=== PATIENT | male | born 1965 | race Caucasian/White ===

== ENCOUNTER 2020-05-23 19:56 | Inpatient (IN) | payer BC ==
[~2020-05-23] VITALS: Ht 175.3 cm; Wt 91.2 kg
--- NOTE | 2020-05-23 20:10 | NUR ---
2009 ADMITTED FROM [facility] 54 YEAR OLD GENTLEMAN WITH DX PLEURAL EFFUSIONS. AAOX4, AMBULATORY WITHOUT ASSIST. NOTED WITH SOB ON EXERTION BUT PATIENT DENIED DIFFICULTY BREATHING WHEN ASKED. VITAL SIGNS TAKEN AND RECORDED. O2 SATURATION 90% ON ROOM AIR, PLACED PATIENT ON 2LPM AND IMMEDIATELY O2 SAT WENT UP TO 95%. ADMISSION CARE RENDERED. HOB ELEVATED FOR MAXIMUM OXYGENATION. CALL LIGHT PLACED WITHIN REACH AND INSTRUCTED TO CALL FOR ASSISTANCE.
--- NOTE | 2020-05-23 20:25 | NUR ---
[address] RAYO FOR ADMISSION ORDERS, AWAITING CALL BACK.
--- NOTE | 2020-05-23 21:10 | NUR ---
2109 DR RAYO CALLED BACK AND MADE AWARE OF NEW ADMISSION.
[2020-05-23 22:00] VITALS: BP 151/96
[2020-05-23] MEDS ORDERED: MAGNESIUM HYDROXIDE 30 ML UDC PO PRN (23:00)
[2020-05-23] MEDS ORDERED: ONDANSETRON HCL/PF 4 MG/2 ML VIAL IVP PRN (23:00)
[2020-05-23] MEDS ORDERED: Z GUARD REMEDY 2 OZ OINT TP PRN (23:00)
[2020-05-23] MEDS ORDERED: MAG HYDROX/AL HYDROX/SIMETH 30 ML UDC PO PRN (23:00)
[2020-05-23] MEDS ORDERED: HYDROCODONE/APAP 5/325MG TABLET PO PRN (23:00)
--- NOTE | 2020-05-23 23:40 | NUR ---
RT NOTE PT PLACED ON CPAP 5 @ 28%. MASK SECURED WITH MEPILEX IN PLACE. ALARMS ON AND AUDIBLE. NO DISTRESS NOTED AT THIS TIME. PT STATES HE IS COMFORTABLE WITH CURRENT SETTINGS. RAKESH BORREGO NOTIFIED AND IS AWARE. WILL CONTINUE TO MONITOR CLOSELY. Addendum: 05/23/20 at 2357 by NAZARIO CROOK RT Amended: Links added.
[2020-05-24] VITALS: BP 149/82
--- NOTE | 2020-05-24 00:10 | NUR ---
RT NOTE PT REQUESTED TO REMOVE CPAP. NO DISTRESS NOTED. WILL PLACE ON CPAP AT A LATER TIME.
[2020-05-24] MEDS: ACETAMINOPHEN 325 MG TABLET PO PRN ×2 (00:12→07:32)
[2020-05-24] MEDS ORDERED: FUROSEMIDE 40 MG/4 ML VIAL IV ONE (00:30)
--- NOTE | 2020-05-24 03:18 | NUR ---
RT NOTE PT REFUSING TO GO BACK ON BIPAP MACHINE. NO DISTRESS NOTED. RN JEFFREY AWARE.
[2020-05-24 04:00] VITALS: BP 119/75
--- NOTE | 2020-05-24 04:45 | NUR ---
RN notes REceived from Berman a 54 year old male via ambulance on a gurney with complaint of shortness of breath especially upon exertionwith vital signs of BP 151/96, HR 113 and temp of 97.7. No complaint of pain or discomfort. Administered O2 via NC at 2lpm tolerating well. Patient at first wants to have BIPAP during sleep but later on refused to wear the mask. For thoracentesis in AM. No significant change of condition overnight. Needs attended. Kept clean and dry. Will endorse to next shift for continuity of care.
--- NOTE | 2020-05-24 07:10 | NUR ---
RN OPENING NOTES RECEIVED PT AWAKE, A/O X4. AMBULATORY. SKIN IS INTACT. ON ROOM AIR SATURATING @ 97%. NO SOB OR ANY RESPIRATORY DISTRESS NOTED. WITH LEFT AC #20 INTACT, PATENT AND FLUSHED. NO PAIN REPORTED AT THIS TIME. SAFETY MEASURES OBSERVED. CALL LIGHT WITHIN REACH. BED LOCKED AND AT LOWEST POSITION. WILL CONTINUE TO MONITOR.
[2020-05-24 07:30] LABS: BASOPHILS % (AUTO) 0.4 % (0.0-2.0); EOSINOPHILS % (AUTO) 0.9 % (0.0-6.0); HEMATOCRIT 44 % (39-51); HEMOGLOBIN 14.6 g/dL (13.5-17.5); LYMPHOCYTES % (AUTO) 11.2 % (20.0-44.0); MEAN CORPUSCULAR HGB CONC 34 g/dl (31.0-36.0); MEAN CORPUSCULAR VOLUME 91 fL (80-96); NEUTROPHILS # (AUTO) 6.9 /CMM (1.8-8.9); NEUTROPHILS % (AUTO) 76.5 % (43.0-81.0); PLATELET COUNT (AUTO) 216 /CMM (150-450); RED BLOOD CELL COUNT(AUTO) 4.77 MIL/uL (4.5-6.0); WHITE BLOOD COUNT (AUTO) 9.1 K/uL (4.3-11.0)
[2020-05-24 07:53] LABS: MAGNESIUM 2.2 mg/dL (1.8-2.4); PHOSPHORUS 4.2 mg/dL (2.5-4.9); POTASSIUM 4.1 mmol/L (3.5-5.1)
[2020-05-24 08:00] VITALS: BP 151/88
[2020-05-24] MEDS ORDERED: BENA20TA9 PO (09:00)
[2020-05-24] MEDS ORDERED: ATOR40TA PO (09:00)
[2020-05-24] MEDS ORDERED: METF-440 PO (09:00)
[2020-05-24] MEDS ORDERED: GLIP5TAB13 PO (09:00)
--- NOTE | 2020-05-24 11:03 | NUR ---
THORACENTESIS PENDING, AWAITING RN ELLA TO ORDER INR FOR PATIENT
[2020-05-24 12:00] VITALS: BP 146/87
--- NOTE | 2020-05-24 15:00 | NUR ---
RN NOTES US GUIDED THORACENTESIS DONE. 1660ML DRAINED ON RIGHT LUNG. FLUIDS SENT TO LAB FOR CULTURE AND BODY FLUIDS ANALYSIS. CXR DONE POST THORACENTESIS
[2020-05-24 16:00] VITALS: BP 137/93
[2020-05-24] MEDS: FUROSEMIDE 40 MG/4 ML VIAL IV SCH ×2 (16:50→18:56)
--- NOTE | 2020-05-24 18:53 | NUR ---
RN CLOSING NOTES PT RESTING IN BED, A/O X4. AMBULATORY. SKIN IS INTACT. PT ON ROOM AIR, ON CONTINUOUS PULSE OX @ 98% . NO SOB OR ANY RESPIRATORY DISTRESS NOTED. WITH LEFT AC #20 INTACT, PATENT AND FLUSHED. NO PAIN REPORTED AT THIS TIME. SAFETY MEASURES OBSERVED. CALL LIGHT WITHIN REACH. BED LOCKED AND AT LOWEST POSITION. WILL ENDORSE TO PICK UP OPERATOR FOR DESTINY.
[2020-05-24 20:00] VITALS: BP 137/82
[2020-05-25] VITALS: BP 106/66
--- NOTE | 2020-05-25 03:31 | NUR ---
RN notes In bed, comfortably resting with no distress noted. Breathing even and unlabored. Room air well tolerated. Kept clean and dry. S/p thoracentesis. Kept clean and dry. Will endorse to next shift for continuity of care.
[2020-05-25 04:00] VITALS: BP 122/85
[2020-05-25 07:03] LABS: BASOPHILS % (AUTO) 0.5 % (0.0-2.0); EOSINOPHILS % (AUTO) 1.5 % (0.0-6.0); HEMATOCRIT 47 % (39-51); HEMOGLOBIN 15.8 g/dL (13.5-17.5); LYMPHOCYTES # (AUTO) 1.1 /CMM (0.8-4.8); LYMPHOCYTES % (AUTO) 11.4 % (20.0-44.0); MEAN CORPUSCULAR HGB CONC 34 g/dl (31.0-36.0); MEAN CORPUSCULAR VOLUME 91 fL (80-96); MONOCYTES # (AUTO) 1.3 /CMM (0.1-1.30); MONOCYTES % (AUTO) 13.9 % (2.0-12.0); NEUTROPHILS # (AUTO) 6.8 /CMM (1.8-8.9); NEUTROPHILS % (AUTO) 72.7 % (43.0-81.0); PLATELET COUNT (AUTO) 218 /CMM (150-450); RED BLOOD CELL COUNT(AUTO) 5.14 MIL/uL (4.5-6.0); WHITE BLOOD COUNT (AUTO) 9.4 K/uL (4.3-11.0)
[2020-05-25 07:20] LABS: CREATININE 1.1 mg/dL (0.6-1.3); POTASSIUM 3.9 mmol/L (3.5-5.1)
[2020-05-25] MEDS ORDERED: FURO-144 PO (11:15)
== END 2020-05-25 13:03 | disposition home or self-care (01) | DRG 186 ==
LOC: TELE1 19:56
PROVIDERS: ADMIT Internal Medicine; ATTEND Family Medicine
PROC: 5A09457 Assistance with Respiratory Ventilation, 24-96 Consecutive Hours, Continuous Positive Airway Pressure (ICD-10-PCS; principal; 2020-05-23)
PROC: 0W993ZZ Drainage of Right Pleural Cavity, Percutaneous Approach (ICD-10-PCS; 2020-05-24)
DX: J90 Pleural effusion, not elsewhere classified (principal); J96.01 Acute respiratory failure with hypoxia; J98.11 Atelectasis; I25.10 Atherosclerotic heart disease of native coronary artery without angina pectoris; I10 Essential (primary) hypertension; Z95.1 Presence of aortocoronary bypass graft; G47.33 Obstructive sleep apnea (adult) (pediatric); E66.9 Obesity, unspecified; Z98.890 Other specified postprocedural states; E11.65 Type 2 diabetes mellitus with hyperglycemia; Z68.29 Body mass index [BMI] 29.0-29.9, adult; Z90.49 Acquired absence of other specified parts of digestive tract; Z79.84 Long term (current) use of oral hypoglycemic drugs; Z79.899 Other long term (current) drug therapy; Z85.71 Personal history of Hodgkin lymphoma
CPT/HCPCS: 36415; 71045-TC; 80048-TC; 82040-TC; 83735-TC; 84100-TC; 85025-TC; 85610-TC; 87070-TC; 87075-TC; 87081-TC; 89051-TC; 93307-TC; 94799-TC; G0378; J1940

== ENCOUNTER 2020-11-06 10:07 | Inpatient (IN) | payer BC ==
[~2020-11-06] VITALS: Ht 175.3 cm; Wt 80.7 kg
[~2020-11-06 10:07] MED LIST: ATOR40TA PO; BENA20TA9 PO; FURO-144 PO; GLIP5TAB13 PO; METF-440 PO
--- NOTE | 2020-11-06 10:25 | NUR ---
Sob x 1 week. Patient a/ox4, ambulatory with steady gait. c/o difficulty breathing. changed into a gown, attached to the senior program analyst.
--- NOTE | 2020-11-06 10:35 | NUR ---
DR. BOWLING AT BEDSIDE FOR EVAL.
[2020-11-06 10:48] LABS: BASOPHILS % (AUTO) 0.5 % (0.0-2.0); EOSINOPHILS % (AUTO) 0.3 % (0.0-6.0); HEMATOCRIT 47 % (39-51); HEMOGLOBIN 15.7 g/dL (13.5-17.5); LYMPHOCYTES # (AUTO) 0.7 /CMM (0.8-4.8); LYMPHOCYTES % (AUTO) 7.2 % (20.0-44.0); MEAN CORPUSCULAR HGB CONC 33 g/dl (31.0-36.0); MEAN CORPUSCULAR VOLUME 93 fL (80-96); MONOCYTES # (AUTO) 0.8 /CMM (0.1-1.30); MONOCYTES % (AUTO) 8.6 % (2.0-12.0); NEUTROPHILS # (AUTO) 8.1 /CMM (1.8-8.9); NEUTROPHILS % (AUTO) 83.4 % (43.0-81.0); PLATELET COUNT (AUTO) 293 /CMM (150-450); RED BLOOD CELL COUNT(AUTO) 5.05 MIL/uL (4.5-6.0); WHITE BLOOD COUNT (AUTO) 9.7 K/uL (4.3-11.0)
[2020-11-06 11:06] LABS: CALCIUM, SERUM 9.2 mg/dL (8.5-10.1); CREATININE 1.2 mg/dL (0.6-1.3); POTASSIUM 4.1 mmol/L (3.5-5.1)
[2020-11-06 11:13] LABS: ALBUMIN 3.7 g/dL (3.4-5.0); BILIRUBIN,DIRECT 0.4 mg/dL (0.0-0.2); BILIRUBIN,TOTAL 1.1 mg/dL (0.2-1.0); TOTAL PROTEIN, SERUM 7.5 g/dL (6.4-8.2)
--- NOTE | 2020-11-06 11:38 | NUR ---
COVID ANTIGEN SENT TO LAB.
--- NOTE | 2020-11-06 11:50 | NUR ---
[facility] CALLED BOX BENDER PAGED.
[2020-11-06] MEDS ORDERED: FUROSEMIDE 40 MG/4 ML VIAL IV ONE (12:00)
[2020-11-06] MEDS ORDERED: FUROSEMIDE 40 MG/4 ML VIAL ONE (12:05)
--- NOTE | 2020-11-06 12:20 | NUR ---
DR. SAMSON AT BEDSIDE.
--- NOTE | 2020-11-06 12:30 | NUR ---
BED 321-1
--- NOTE | 2020-11-06 12:38 | NUR ---
REPORT GIVEN TO JOHN CAMERON.
[2020-11-06 13:40] VITALS: BP 118/67
--- NOTE | 2020-11-06 13:43 | NUR ---
PATIENT TRANSFERRED TO ROOM 321-1 VIA ACLS PROTOCOL, NO DISTRESS NOTED, ENDORSED TO EDWARD.
--- NOTE | 2020-11-06 14:10 | NUR ---
FLASH DEVELOPER NOTES RECIEVED PT FROM ER STAFF VIA PRASHANTH, PT IS AWAKE ALERT ORIENTED, DENIES AND DISCOMFORT, BREATHING PATTERN NORMAL, TOLERATING RA. ROOM SETUP, ORIENTATION PROVIDED, VERBALIZED UNDERSTANDING, KEPT COMFORTABLE IN BED, AWAITING ADMISSION ORDERS FROM MD.
[2020-11-06 16:00] VITALS: BP 106/64
[2020-11-06] MEDS ORDERED: ACETAMINOPHEN 325 MG TABLET PO PRN (16:00)
[2020-11-06] MEDS ORDERED: MAGNESIUM HYDROXIDE 30 ML UDC PO PRN (16:00)
[2020-11-06] MEDS ORDERED: ONDANSETRON HCL/PF 4 MG/2 ML VIAL IVP PRN (16:00)
[2020-11-06] MEDS ORDERED: ZOLPIDEM TARTRATE 5 MG TABLET PO PRN (16:00)
[2020-11-06] MEDS ORDERED: MAG HYDROX/AL HYDROX/SIMETH 30 ML UDC PO PRN (16:00)
[2020-11-06] MEDS ORDERED: HYDROCODONE/APAP 5/325MG TABLET PO PRN (16:00)
[2020-11-06] MEDS ORDERED: Z GUARD REMEDY 2 OZ OINT TP PRN (16:00)
--- NOTE | 2020-11-06 16:36 | NUR ---
Spoke to the patient's RN and told him U/S Guided Thoracentesis will be down tomorrow morning. Awaiting INR level.
[2020-11-06] MEDS ORDERED: DEXTROSE 50%-WATER 50 ML DISP.SYRIN IV PRN (17:00)
[2020-11-06] MEDS: BLOOD SUGAR DIAGNOSTIC 1 EACH STRIP VI SCH ×2 (17:09→21:31)
[2020-11-06] MEDS: BENAZEPRIL HCL 20 MG TABLET PO SCH (18:30)
[2020-11-06] MEDS: FUROSEMIDE 40 MG/4 ML VIAL IV SCH ×2 (18:39→22:30)
--- NOTE | 2020-11-06 18:45 | NUR ---
RN CLOSING NOTES RECIEVED PT FROM ER STAFF VIA PRASHANTH, PT IS AWAKE ALERT ORIENTED, DENIES AND DISCOMFORT, BREATHING PATTERN NORMAL, TOLERATING RA. ROOM SETUP, ORIENTATION PROVIDED, VERBALIZED UNDERSTANDING, KEPT COMFORTABLE IN BED, AWAITING ADMISSION ORDERS FROM MD. Discussed plan of care with and consent obtained from patient for ultrasound guided thoracentesis to be performed tomorrow.
[2020-11-06] MEDS: INSULIN REGULAR, HUMAN 100 UNIT/ML 3 ML VIAL SQ PRN (18:59)
[2020-11-06 20:00] VITALS: BP 114/75
--- NOTE | 2020-11-06 20:08 | NUR ---
RN NOTES Received pt. awake on bed, a/ox4, ambulatory ST on tele monitor HR-109, deniues pain, no SOB,call light within reach, siderailsupx2, will continue to monitor
--- NOTE | 2020-11-06 20:09 | NUR ---
RN NOTES noted pt is -Afib on the tele monitor HR-113, pt is not in distress, denies pain, will continue to monitor
--- NOTE | 2020-11-06 20:52 | NUR ---
RN NOTES Informed DR. Sales regarding patient for thoracentesis tomorrow and patients will have Lovenox 40mg tonight. Got an order to hold it for tonight, order noted and carried out
[2020-11-06] MEDS: ENOXAPARIN SODIUM 40 MG/0.4 ML DISP.SYRIN SQ SCH (21:00)
[2020-11-06] MEDS: ATORVASTATIN 40 MG TABLET PO SCH (21:31)
[2020-11-06] MEDS: *INSULIN REGULAR(HUMULIN R)HUM 100 UNIT/ML VIAL SQ PRN (21:43)
--- NOTE | 2020-11-07 | NUR ---
.RN NOTES Digoxin 0.25mg IV given V/S stable, will continue to monitor
[2020-11-07] MEDS: DIGOXIN INJ 0.5 MG/2 ML AMPUL IV SCH ×4 (00:13→13:10)
[2020-11-07 01:03] VITALS: BP 106/60
[2020-11-07] MEDS: FUROSEMIDE 40 MG/4 ML VIAL IV SCH ×2 (02:11→08:51)
[2020-11-07 06:08] VITALS: BP 117/77
[2020-11-07] MEDS: INSULIN REGULAR, HUMAN 100 UNIT/ML 3 ML VIAL SQ PRN ×2 (06:28→13:14)
[2020-11-07] MEDS: BLOOD SUGAR DIAGNOSTIC 1 EACH STRIP VI SCH ×4 (06:29→21:17)
--- NOTE | 2020-11-07 06:41 | NUR ---
RN NOTES Sleeping but arousable, morning care render, denies pain, no SOB, call light within reach, siderailsupx2, pt. needs attended
[2020-11-07 07:33] LABS: BASOPHILS % (AUTO) 0.6 % (0.0-2.0); EOSINOPHILS % (AUTO) 1.8 % (0.0-6.0); HEMATOCRIT 44 % (39-51); HEMOGLOBIN 14.6 g/dL (13.5-17.5); LYMPHOCYTES # (AUTO) 1.3 /CMM (0.8-4.8); LYMPHOCYTES % (AUTO) 18.1 % (20.0-44.0); MEAN CORPUSCULAR HGB CONC 34 g/dl (31.0-36.0); MEAN CORPUSCULAR VOLUME 92 fL (80-96); MONOCYTES # (AUTO) 0.9 /CMM (0.1-1.30); MONOCYTES % (AUTO) 13.2 % (2.0-12.0); NEUTROPHILS # (AUTO) 4.6 /CMM (1.8-8.9); NEUTROPHILS % (AUTO) 66.3 % (43.0-81.0); PLATELET COUNT (AUTO) 264 /CMM (150-450); RED BLOOD CELL COUNT(AUTO) 4.73 MIL/uL (4.5-6.0)
--- NOTE | 2020-11-07 07:56 | NUR ---
DOCTOR OF DENTAL SURGERY OPENING NOTE PATIENT IS IN BED RESTING, PATIENT IS IN NO ACUTE DISTRESS. PATIENT IS ON 4L OXYGEN ON NASAL CANNULA, TOLERATING WELL. NO SOB NOTED. PATIENT IS ON TELE MONITOR READING A-FIB IN 100s. PATIENT IS ON DAILY WEIGHT MEASURES. SAFETY PRECAUTIONS ARE ON, BED IS LOCKED AND IN THE LOWEST POSITION WITH SIDE RAILS UP. CALL LIGHT WITHIN REACH. WILL CONTINUE TO MONITOR CLOSELY THROUGHOUT THE SHIFT.
[2020-11-07 08:07] LABS: ALBUMIN 3.1 g/dL (3.4-5.0); BILIRUBIN,TOTAL 0.9 mg/dL (0.2-1.0); CALCIUM, SERUM 8.8 mg/dL (8.5-10.1); CREATININE 0.9 mg/dL (0.6-1.3); MAGNESIUM 1.8 mg/dL (1.8-2.4); PHOSPHORUS 4.1 mg/dL (2.5-4.9); POTASSIUM 3.5 mmol/L (3.5-5.1); TOTAL PROTEIN, SERUM 6.5 g/dL (6.4-8.2)
[2020-11-07] MEDS: BENAZEPRIL HCL 20 MG TABLET PO SCH (08:51)
[2020-11-07] MEDS: glipiZIDE 5 MG TABLET PO SCH (08:51)
[2020-11-07 09:25] LABS: THYROID STIMULATING HORMONE 2.123 uIU/mL (0.358-3.74)
[2020-11-07] MEDS: DILTIAZEM HCL CD 240 MG PO SCH (10:04)
[2020-11-07] MEDS ORDERED: ASPI-869 PO (13:28)
--- NOTE | 2020-11-07 19:41 | NUR ---
SOFTWARE IMPLEMENTATION PROJECT MANAGER CLOSING NOTE PATIENT IS IN BED RESTING, PATIENT IS IN NO ACUTE DISTRESS. PATIENT IS ON 4L OXYGEN ON NASAL CANNULA, TOLERATING WELL. NO SOB NOTED. PATIENT IS ON TELE MONITOR READING A-FIB IN 90s. PATIENT IS ON DAILY WEIGHT MEASURES. PATIENT HAD BILATERAL THORACENTESIS DONE, 3.6L OF FLUID REMOVED AND SENT TO PATHOLOGY, MS IS AWARE. SAFETY PRECAUTIONS ARE ON, BED IS LOCKED AND IN THE LOWEST POSITION WITH SIDE RAILS UP. CALL LIGHT WITHIN REACH. ENDORSE PATIENT TO FOLLOW UP SPECIALIST NURSE FOR DESTINY.
[2020-11-07 20:00] VITALS: BP 106/61
[2020-11-07 20:29] VITALS: BP 107/61
[2020-11-07] MEDS: ATORVASTATIN 40 MG TABLET PO SCH (21:16)
[2020-11-07] MEDS: ENOXAPARIN SODIUM 40 MG/0.4 ML DISP.SYRIN SQ SCH (21:17)
[2020-11-08] VITALS (31 sets, daily range): BP systolic 61–146; BP diastolic 41–75
[2020-11-08] MEDS: BLOOD SUGAR DIAGNOSTIC 1 EACH STRIP VI SCH ×4 (06:10→21:25)
--- NOTE | 2020-11-08 06:18 | NUR ---
FINGERPRINT CLERK NOTES AWAKE & RESPONSIVE. NOT IN ANY DISTRESS. NO SOB NOTED. DENIES ANY PAIN OR DISCOMFORT AT THIS TIME. ON TELE SR @ 84 WITH IV-HL PATENT & INTACT. MONITORED ACCORDINGLY. CALL LIGHT WITHIN REACH. BED IN LOWEST POSITION. SR UP X 2 FOR SAFETY. WILL ENDORSE TO NEXT SHIFT.
[2020-11-08 06:24] LABS: BASOPHILS # (AUTO) 0.1 /CMM (0.0-0.2); BASOPHILS % (AUTO) 0.7 % (0.0-2.0); EOSINOPHILS % (AUTO) 1.3 % (0.0-6.0); HEMATOCRIT 46 % (39-51); HEMOGLOBIN 15.1 g/dL (13.5-17.5); LYMPHOCYTES % (AUTO) 11.9 % (20.0-44.0); MEAN CORPUSCULAR HGB CONC 33 g/dl (31.0-36.0); MEAN CORPUSCULAR VOLUME 92 fL (80-96); MONOCYTES # (AUTO) 1.1 /CMM (0.1-1.30); MONOCYTES % (AUTO) 12.5 % (2.0-12.0); NEUTROPHILS # (AUTO) 6.3 /CMM (1.8-8.9); NEUTROPHILS % (AUTO) 73.6 % (43.0-81.0); PLATELET COUNT (AUTO) 231 /CMM (150-450); RED BLOOD CELL COUNT(AUTO) 4.93 MIL/uL (4.5-6.0); WHITE BLOOD COUNT (AUTO) 8.6 K/uL (4.3-11.0)
[2020-11-08 06:40] LABS: CALCIUM, SERUM 8.4 mg/dL (8.5-10.1); CREATININE 0.9 mg/dL (0.6-1.3); MAGNESIUM 1.8 mg/dL (1.8-2.4); PHOSPHORUS 3.7 mg/dL (2.5-4.9); POTASSIUM 3.3 mmol/L (3.5-5.1)
--- NOTE | 2020-11-08 07:33 | NUR ---
MS/RN OPENING NOTE RECEIVED PATIENT FROM MOLD YARD SUPERVISOR NURSE. PATIENT AWAKE SITTING ON CHAIR BESIDE HOSPITAL BED. A/O X4 PATIENT, DENIES ANY PAIN AT THIS TIME, NO ACUTE DISTRESS NOTED. PATIENT ON 4L OXYGEN ON AND OFF, PATIENT REMOVES NASAL CANNULA PERIODICALLY, NO SOB ON ROOM, BREATHING EVEN, NON LABORED. SAFETY MEASURES IN PLACE, BED LOCKED AND IN LOWEST POSITION, CALL LIGHT WITHIN REACH. WILL CONTINUE TO MONITOR AND ENSURE SAFETY.
[2020-11-08] MEDS: ASPIRIN EC 325 MG TABLET.DR PO SCH (08:35)
[2020-11-08] MEDS: POTASSIUM CHLORIDE 20 MEQ TAB.PRT.SR PO SCH ×2 (08:35→09:00)
[2020-11-08] MEDS: FUROSEMIDE 40 MG/4 ML VIAL IV SCH (08:35)
[2020-11-08] MEDS: glipiZIDE 5 MG TABLET PO SCH (08:35)
[2020-11-08] MEDS: BENAZEPRIL HCL 20 MG TABLET PO SCH (08:35)
[2020-11-08] MEDS: DILTIAZEM HCL CD 240 MG PO SCH (08:36)
[2020-11-08] MEDS ORDERED: NITROGLYCERIN 0.4 MG/TAB BOTTLE SL ONE (09:00)
[2020-11-08] MEDS ORDERED: NITROGLYCERIN 0.4 MG/TAB BOTTLE ONE (09:02)
[2020-11-08] MEDS ORDERED: CT SWABBABLE VALVE TRANS SET 1 EA INFUS.SET MC ONE (09:02)
[2020-11-08] MEDS ORDERED: IV NS 0.9% 250 ML IV ONE (09:02)
[2020-11-08] MEDS ORDERED: IOHEXOL-350 100 ML VIAL IV ONE (09:02)
[2020-11-08] MEDS ORDERED: METOPROLOL TARTRATE INJ 5 MG/5 ML AMPUL ONE ×2 (09:02→09:22)
[2020-11-08] MEDS: METOPROLOL TARTRATE INJ 5 MG/5 ML AMPUL IVP PRN ×4 (09:11→09:25)
--- NOTE | 2020-11-08 09:40 | NUR ---
CTA PROCEDURE WELL TOLERATED BY THE PT. AAOX4, NOT IN RESPIRATORY DISTRESS, V/S STABLE, KEPT RESTED AND COMFORTABLE. REPORT GIVEN TO RAKESH SANTIAGO FOR DESTINY.
[2020-11-08] MEDS ORDERED: METOPROLOL TARTRATE INJ 5 MG/5 ML AMPUL IVP PRN (09:42)
[2020-11-08] MEDS ORDERED: POTASSIUM CHLORIDE 20 MEQ TAB.PRT.SR PO SCH (11:00)
[2020-11-08] MEDS: INSULIN REGULAR, HUMAN 100 UNIT/ML 3 ML VIAL SQ PRN (13:00)
[2020-11-08] MEDS ORDERED: IV NS 0.9% 500 ML BAG IV ONE (15:30)
[2020-11-08] MEDS ORDERED: ALBUMIN IV ONE (17:00)
[2020-11-08] MEDS ORDERED: ALBUMIN 25% 25 GM in PREMIX 1 EA IV ONE (17:00)
[2020-11-08] MEDS: APIXABAN 5 MG TABLET PO SCH (17:20)
--- NOTE | 2020-11-08 18:30 | NUR ---
MS/RN NOTE PATIENT WAS COMPLAINING OF DIZZINESS STATES NOT FEELING WELL,. BP WAS IN THE 60S. NOTIFIED DR. SAMSON. 1VF NS 500ML BOLUS PER MD. PATIENT WAS REASSED AFTER IV BOLUS, NO EFFECT BP STILL WITHIN 60S. CHAPIN NOTIFIED. 2 BAGS OF ALBUMIN ORDERED, NO EFFECT WELL. BP REMAINED IN 60S. CHAPIN NOTIFIED. 1000ML NS IV BOLUS ORDERED, TRANSFER TO ICU PER MD ORDER.
[2020-11-08] MEDS ORDERED: IV NS 0.9% 1,000 ML IV ONE (19:00)
--- NOTE | 2020-11-08 19:30 | NUR ---
POWER BRAKE OPERATOR: RECEIVED PT COMING FROM TELE UNIT FOR HYPOTENSION. A/O X4, C/O DIZZINESS. ON 4L 02 VIA NC. SR WT 1ST DEGREE AV BLOCK ON FARMWORKER POULTRY. 1L NS BOLUS RUNNING WT SUSTAINED LOW SBP IN THE 60s. CHARGE NURSE ED NOTIFIED DR. SMALLS WT NEW ORDERS FOR MID LINE INSERTION AND LEVOPHED. WILL CONTINUE TO MONITOR. HOB AT 15 DEGREES. BED IN LOWEST POSITION AND LOCKED. BED ALARM ACTIVATED. SIDE RAILS UPX2. CALL LIGHT WITHIN REACH.
[2020-11-08] MEDS ORDERED: NOREPINEPHRINE 32 MG in IV NS 0.9% 218 ML IV PRN (20:00)
[2020-11-08] MEDS ORDERED: CARVEDILOL 12.5 MG TABLET PO SCH (21:00)
[2020-11-08] MEDS: ATORVASTATIN 40 MG TABLET PO SCH (21:16)
[2020-11-08] MEDS: *INSULIN REGULAR(HUMULIN R)HUM 100 UNIT/ML VIAL SQ PRN (21:33)
--- NOTE | 2020-11-08 21:35 | NUR ---
TEAM FOREMAN: HELD COREG. CURRENTLY ON LEVOPHED AT 0.3MCG/KG/MIN FOR BP SUPPORT.
--- NOTE | 2020-11-08 22:38 | NUR ---
BRAKE OPERATOR HELPER: DR. SMALLS MADE AWARE OF PT HAVING OCCASIONAL PVCs & COUPLETS, STILL NSR. RELAYED THIS AM LABS. NO NEW ORDER AT THIS TIME.
[2020-11-09] VITALS (90 sets, daily range): BP systolic 78–176; BP diastolic 33–83
[2020-11-09 04:52] LABS: BASOPHILS % (AUTO) 0.3 % (0.0-2.0); HEMATOCRIT 47 % (39-51); HEMOGLOBIN 15.6 g/dL (13.5-17.5); LYMPHOCYTES # (AUTO) 1.1 /CMM (0.8-4.8); LYMPHOCYTES % (AUTO) 8.7 % (20.0-44.0); MEAN CORPUSCULAR HGB CONC 33 g/dl (31.0-36.0); MEAN CORPUSCULAR VOLUME 91 fL (80-96); MONOCYTES # (AUTO) 1.6 /CMM (0.1-1.30); MONOCYTES % (AUTO) 13.1 % (2.0-12.0); NEUTROPHILS # (AUTO) 9.3 /CMM (1.8-8.9); NEUTROPHILS % (AUTO) 76.9 % (43.0-81.0); PLATELET COUNT (AUTO) 252 /CMM (150-450); WHITE BLOOD COUNT (AUTO) 12.1 K/uL (4.3-11.0)
[2020-11-09 05:13] LABS: CALCIUM, SERUM 8.6 mg/dL (8.5-10.1); CREATININE 1.4 mg/dL (0.6-1.3); MAGNESIUM 1.9 mg/dL (1.8-2.4); PHOSPHORUS 4.2 mg/dL (2.5-4.9); POTASSIUM 3.4 mmol/L (3.5-5.1)
--- NOTE | 2020-11-09 06:20 | NUR ---
ORNITHOLOGY TEACHER: REMAINED A/O X4, STILL ON 3L 02 VIA NC. NO ACUTE DISTRESS. CONTINUE ON LEVOPHED 0.2MCG/KG/MIN FOR BP SUPPORT. NO S/S OF IV INFILTRATION. REFUSED BED BATH AND SAID HE WANTED TO REST/SLEEP. SAFETY PRECAUTION NOTED AT ALL TIMES.
--- NOTE | 2020-11-09 07:30 | NUR ---
COIL CONNECTOR OPENING NOTES: Patient currently in bed and no s/s of acute respiratory distress noted. On levo drip at 0.2 mcg/kg. BP WNL. Patient is on 3 liters 02 via nc with 02 sat of 98%. Right ac peripheral line running patent and no s/s of infiltration. HOB kept elevated. Bed is in lowest and locked position. Call light with in reach.
[2020-11-09] MEDS: BLOOD SUGAR DIAGNOSTIC 1 EACH STRIP VI SCH ×4 (08:05→21:43)
[2020-11-09] MEDS: INSULIN REGULAR, HUMAN 100 UNIT/ML 3 ML VIAL SQ PRN ×3 (08:06→17:29)
[2020-11-09] MEDS: glipiZIDE 5 MG TABLET PO SCH (09:18)
[2020-11-09] MEDS: ASPIRIN EC 325 MG TABLET.DR PO SCH (09:18)
[2020-11-09] MEDS: APIXABAN 5 MG TABLET PO SCH ×2 (09:21→17:06)
[2020-11-09] MEDS ORDERED: POTASSIUM CHLORIDE 20 MEQ TAB.PRT.SR PO SCH (11:00)
--- NOTE | 2020-11-09 12:00 | NUR ---
Patient levo drip titrated to 0.1 instead of 0.2 , richard well.
--- NOTE | 2020-11-09 14:00 | NUR ---
Patient's levo drip turned off but noted with lower BP reading and MAP. Patient restarted on 0.1 mcg levo, BP WNL.
--- NOTE | 2020-11-09 16:00 | NUR ---
Titrated Levo from 0.1 to 0.08 mcg. bp noted to be WNL.
[2020-11-09] MEDS ORDERED: NOREPINEPHRINE 8 MG in IV NS 0.9% 242 ML IV PRN (16:30)
[2020-11-09] MEDS: DOCUSATE SODIUM 100 MG CAPSULE PO SCH (17:05)
--- NOTE | 2020-11-09 19:15 | NUR ---
agriculture mechanic. initial assessment. received the pt rest on the bed. awake, alert. follow commands. monitoring manager showing nsr. iv rt upper arm mid line. levophed 0.08mcg/kg/min. hob elevated. oxygen 3l via nasal cannula. sat 98%. no acute distress noted. afebrile. will continue to monitor vitals.
--- NOTE | 2020-11-09 19:57 | NUR ---
BLOCK BREAKER CLOSING NOTES: Patient currently in bed and no s/s of acute respiratory distress noted. On levo drip at 0.08 mcg/kg. BP WNL. Patient is on 3 liters 02 via nc with 02 sat of 99%. Right upper arm midline patent and no s/s of infiltration. Patient's urine collected for lab during shift. Noted with output of 350 cc of clear yellow urine. No s/s of hypo or hyperglycemia during shift. HOB kept elevated. Bed is in lowest and locked position. Endorsed to next shift for DESTINY
--- NOTE | 2020-11-09 20:00 | NUR ---
agricultural researcher. blood pressure 132/70. levophed titrated down per protocol. will continue to monitor
[2020-11-09] MEDS: ATORVASTATIN 40 MG TABLET PO SCH (21:44)
[2020-11-09] MEDS: *INSULIN REGULAR(HUMULIN R)HUM 100 UNIT/ML VIAL SQ PRN (21:56)
--- NOTE | 2020-11-09 22:18 | NUR ---
curriculum facilitator. blood sugar is 139. insulin given per sliding scale.
[2020-11-10] VITALS (69 sets, daily range): BP systolic 80–128; BP diastolic 44–79
--- NOTE | 2020-11-10 00:32 | NUR ---
silviculture professor. pt is sleeping. levophed titrating down. per protocol.
--- NOTE | 2020-11-10 03:13 | NUR ---
agricultural produce commission agent. levophed titrated down per protocol.
[2020-11-10 04:48] LABS: BASOPHILS # (AUTO) 0.1 /CMM (0.0-0.2); BASOPHILS % (AUTO) 0.9 % (0.0-2.0); EOSINOPHILS % (AUTO) 3.4 % (0.0-6.0); HEMATOCRIT 43 % (39-51); HEMOGLOBIN 14.4 g/dL (13.5-17.5); LYMPHOCYTES # (AUTO) 0.9 /CMM (0.8-4.8); LYMPHOCYTES % (AUTO) 9.7 % (20.0-44.0); MEAN CORPUSCULAR HGB CONC 33 g/dl (31.0-36.0); MEAN CORPUSCULAR VOLUME 92 fL (80-96); MONOCYTES # (AUTO) 1.5 /CMM (0.1-1.30); MONOCYTES % (AUTO) 15.5 % (2.0-12.0); NEUTROPHILS # (AUTO) 6.8 /CMM (1.8-8.9); NEUTROPHILS % (AUTO) 70.5 % (43.0-81.0); PLATELET COUNT (AUTO) 236 /CMM (150-450); RED BLOOD CELL COUNT(AUTO) 4.71 MIL/uL (4.5-6.0); WHITE BLOOD COUNT (AUTO) 9.6 K/uL (4.3-11.0)
[2020-11-10 04:59] LABS: BILIRUBIN,URINE SMALL (NEGATIVE); COLOR,URINE YELLOW (YELLOW); LEUKOCYTE ESTERASE ,URINE NEGATIVE (NEGATIVE); NITRITE, URINE NEGATIVE (NEGATIVE); PROTEIN,URINE TRACE mg/dl (NEGATIVE); UGLUCOSE 100 MG/DL mg/dL (NEGATIVE); UROBILINOGEN,URINE 0.2 EU/dL (0.2)
[2020-11-10 05:03] LABS: BACTERIA,URINE Few /HPF (None Seen); HYALINE CASTS, URINE Few /LPF (None Seen); MUCUS,URINE Few /LPF (None Seen); RBC,URINE 21-50 /HPF (0-2); SQUAMOUS EPITHELIAL CELL,UR Few /HPF (None Seen)
[2020-11-10 05:16] LABS: URINE TOTAL PROTEIN 38.9 mg/dL (0-11.9)
[2020-11-10 05:27] LABS: ALBUMIN 2.6 g/dL (3.4-5.0); CALCIUM, SERUM 8.7 mg/dL (8.5-10.1); CREATININE 1.2 mg/dL (0.6-1.3); PHOSPHORUS 3.8 mg/dL (2.5-4.9); POTASSIUM 3.7 mmol/L (3.5-5.1)
--- NOTE | 2020-11-10 05:39 | NUR ---
agricultural extension specialist. pt slept during shift. pt denies chest pain. oxygen 2l via nasal cannula. sat 95%. no acute distress noted. monitor worker showing nsr and pvcs. afebrile. levophed turned off at 0500. will continue to monitor vitals
[2020-11-10 07:17] LABS: EOSINOPHILS % (MANUAL) 2 % (0-4); LYMPHOCYTES % (MANUAL) 11 % (16-48); MONOCYTES % (MANUAL) 10 % (0-11.0); NEUTROPHILS % (MANUAL) 77 (42-76)
[2020-11-10 07:23] LABS: EOSINOPHIL,URINE None Seen
--- NOTE | 2020-11-10 07:30 | NUR ---
INDUSTRIAL MAINTENANCE REPAIRER HELPER OPENING NOTES: Patient currently in bed and no s/s of acute respiratory distress noted. Patient is on 2 liters 02 via nc with 02 sat of 98%. Patient is currently off any pressors. HOB kept elevated. Bed is in lowest and locked position. Call light with in reach
[2020-11-10] MEDS: BLOOD SUGAR DIAGNOSTIC 1 EACH STRIP VI SCH ×4 (07:38→22:03)
[2020-11-10] MEDS: INSULIN REGULAR, HUMAN 100 UNIT/ML 3 ML VIAL SQ PRN ×3 (07:47→17:08)
[2020-11-10] MEDS: FUROSEMIDE 40 MG TABLET PO SCH (09:00)
[2020-11-10] MEDS: LOSARTAN POTASSIUM 50 MG TABLET PO SCH (09:00)
[2020-11-10] MEDS: DOCUSATE SODIUM 100 MG CAPSULE PO SCH ×2 (09:34→17:02)
[2020-11-10] MEDS: POTASSIUM CHLORIDE 20 MEQ TAB.PRT.SR PO SCH (09:34)
[2020-11-10] MEDS: ASPIRIN EC 325 MG TABLET.DR PO SCH (09:34)
[2020-11-10] MEDS: APIXABAN 5 MG TABLET PO SCH ×2 (09:34→17:08)
[2020-11-10] MEDS: glipiZIDE 5 MG TABLET PO SCH (09:35)
--- NOTE | 2020-11-10 19:29 | NUR ---
BILLING CUSTOMER SERVICE REPRESENTATIVE CLOSING NOTES: Patient currently in bed and no s/s of acute respiratory distress noted. BP WNL. Patient is on 2 liters 02 via nc with 02 sat of 100%. Right upper arm midline patent and no s/s of infiltration HOB kept elevated. Bed is in lowest and locked position. Endorsed to next shift for DESTINY Patient had one bm during shift and 300 cc of urine ouput.
--- NOTE | 2020-11-10 19:45 | NUR ---
horticulture worker. initial assessment. received the pt rest on the bed. awake, alert. follow commands. oxygen 2l via nasal cannula. sat 96%. no acute distress noted. court monitor showing s tach. iv rt upper arm mid line. saline lock. afebrile. will continue to monitor vitals.
--- NOTE | 2020-11-10 22:00 | NUR ---
field horticultural specialty grower.charge nurse ED report given to 3 paloma huddleston.
[2020-11-10] MEDS: ATORVASTATIN 40 MG TABLET PO SCH (22:03)
[2020-11-10] MEDS: *INSULIN REGULAR(HUMULIN R)HUM 100 UNIT/ML VIAL SQ PRN (22:07)
--- NOTE | 2020-11-10 22:20 | NUR ---
rn opening notes received pt from icu. pt is a/o x 4. pt is on room air, no distress noted at this time. pt breathing is even and unlabored. pt on tele monitoring presents with sinus tachy, heart rate is 101 at this time. pt has yarely midline, flushed aseptically, good blood return noted. pt is ambulatory with steady gait, denies pain at this time. needs attended. all belongings accounted for and remain at bedside. safety measures in place. hob elevated as tolerated. side rails up x2, bed locked in lowest position with bed alarm on. call light within reach. will cont to monitor closely.
--- NOTE | 2020-11-10 22:20 | NUR ---
CENTRIFUGAL CASTING MACHINE OPERATOR. TRANSFER THE PT TO ROOM 317.PT VITALS IS STABLE. PT IS ON ROOM AIR. SAT 95%. NO ACUTE DISTRESS NOTED
[2020-11-11 04:00] VITALS: BP 114/70
[2020-11-11] MEDS: BLOOD SUGAR DIAGNOSTIC 1 EACH STRIP VI SCH (06:37)
[2020-11-11] MEDS: INSULIN REGULAR, HUMAN 100 UNIT/ML 3 ML VIAL SQ PRN (06:46)
[2020-11-11 07:07] LABS: BASOPHILS # (AUTO) 0.1 /CMM (0.0-0.2); BASOPHILS % (AUTO) 0.6 % (0.0-2.0); EOSINOPHILS % (AUTO) 3.5 % (0.0-6.0); HEMATOCRIT 46 % (39-51); HEMOGLOBIN 15.3 g/dL (13.5-17.5); LYMPHOCYTES # (AUTO) 0.9 /CMM (0.8-4.8); LYMPHOCYTES % (AUTO) 9.8 % (20.0-44.0); MEAN CORPUSCULAR HGB CONC 33 g/dl (31.0-36.0); MEAN CORPUSCULAR VOLUME 92 fL (80-96); MONOCYTES # (AUTO) 1.2 /CMM (0.1-1.30); MONOCYTES % (AUTO) 13.4 % (2.0-12.0); NEUTROPHILS # (AUTO) 6.8 /CMM (1.8-8.9); NEUTROPHILS % (AUTO) 72.7 % (43.0-81.0); PLATELET COUNT (AUTO) 254 /CMM (150-450); RED BLOOD CELL COUNT(AUTO) 5.02 MIL/uL (4.5-6.0); WHITE BLOOD COUNT (AUTO) 9.3 K/uL (4.3-11.0)
--- NOTE | 2020-11-11 07:15 | NUR ---
RN CLOSING NOTE PT REMAINS IN BED, NO SIGNIFICANT CHANGES THROUGHOUT SHIFT. NO SOB OR RESP DISTRESS NOTED. PT BREATHING EVEN AND UNLABORED. PT DENIES PAIN. ALL DUE MEDICATIONS GIVEN. ALL NEEDS ATTENDED. SAFETY MEASURES IN PLACE. HOB ELEVATED. BED LOCKED IN LOWEST POSITION. SIDE RAIL UP X2, CALL LIGHT WITHIN REACH. ENDORSED TO DAY NURSE FOR CONTINUATION OF CARE.
--- NOTE | 2020-11-11 07:15 | NUR ---
STOGIE PACKER OPENING NOTE RECEIVED PATIENT IN HIS BED. A/O X4. AMBULATORY. ON ROOM AIR, NO SOB NOTED. IN NO APPARENT DISTRESS. IV ACCESS ON SILVANO MIDLINE, INTACT. SAFETY MEASURES MAINTAINED. BED IN LOWEST POSITION, BRAKES LOCKED. SIDE RAILS UP X2. CALL LIGHT WITHIN REACH. WILL CONTINUE PLAN OF CARE.
[2020-11-11 07:47] LABS: ALBUMIN 2.8 g/dL (3.4-5.0); BILIRUBIN,TOTAL 0.9 mg/dL (0.2-1.0); CALCIUM, SERUM 9.2 mg/dL (8.5-10.1); CREATININE 1.1 mg/dL (0.6-1.3); MAGNESIUM 2.3 mg/dL (1.8-2.4); PHOSPHORUS 2.9 mg/dL (2.5-4.9); POTASSIUM 3.8 mmol/L (3.5-5.1); TOTAL PROTEIN, SERUM 6.5 g/dL (6.4-8.2)
[2020-11-11 08:00] VITALS: BP 108/64
[2020-11-11] MEDS ORDERED: FUROSEMIDE 40 MG/4 ML VIAL IV ONE (08:00)
[2020-11-11] MEDS: FUROSEMIDE 40 MG TABLET PO SCH (08:09)
[2020-11-11] MEDS: glipiZIDE 5 MG TABLET PO SCH (08:09)
[2020-11-11] MEDS: ASPIRIN EC 325 MG TABLET.DR PO SCH (08:09)
[2020-11-11] MEDS: DOCUSATE SODIUM 100 MG CAPSULE PO SCH (08:09)
[2020-11-11] MEDS: POTASSIUM CHLORIDE 20 MEQ TAB.PRT.SR PO SCH (08:09)
[2020-11-11 08:10] VITALS: BP 108/64
[2020-11-11] MEDS: LOSARTAN POTASSIUM 50 MG TABLET PO SCH (08:10)
[2020-11-11] MEDS: APIXABAN 5 MG TABLET PO SCH (08:13)
--- NOTE | 2020-11-11 11:08 | NUR ---
SHOE REPAIRER NOTE PATIENT WAS DISCHARGED. VS 108/64 TX 110 RR 18 T 97.5 HEALTH TEACHING/DISCHARGE/FF UP INSTRUCTIONS GIVEN TO THE PATIENT. VERBALIZED UNDERSTANDING. IV AND WRISTBAND REMOVED. ACCOMPANIED DOWNSTAIRS VIA WHEELCHAIR AND PICKED UP BY .
== END 2020-11-11 11:10 | disposition home or self-care (01) | DRG 291 ==
LOC: ER 10:10 → TELE 12:34 → ICU 11-08 18:43 → MED 11-10 22:19 → TELE 11-10 22:49 → MED 11-11 08:53
PROVIDERS: ADMIT Student in an Organized Health Care Education/Training Program; ATTEND Student in an Organized Health Care Education/Training Program
PROC: 0W993ZZ Drainage of Right Pleural Cavity, Percutaneous Approach (ICD-10-PCS; principal; 2020-11-07)
PROC: 05HB33Z Insertion of Infusion Device into Right Basilic Vein, Percutaneous Approach (ICD-10-PCS; 2020-11-09)
DX: I11.0 Hypertensive heart disease with heart failure (principal); N17.0 Acute kidney failure with tubular necrosis; I50.21 Acute systolic (congestive) heart failure; J18.9 Pneumonia, unspecified organism; J90 Pleural effusion, not elsewhere classified; N10 Acute pyelonephritis; J98.11 Atelectasis; I25.10 Atherosclerotic heart disease of native coronary artery without angina pectoris; I35.9 Nonrheumatic aortic valve disorder, unspecified; I48.91 Unspecified atrial fibrillation; Z95.1 Presence of aortocoronary bypass graft; Z20.822 Contact with and (suspected) exposure to COVID-19; E78.5 Hyperlipidemia, unspecified; E11.9 Type 2 diabetes mellitus without complications; Z79.84 Long term (current) use of oral hypoglycemic drugs; Z79.899 Other long term (current) drug therapy; Z85.71 Personal history of Hodgkin lymphoma; Z90.49 Acquired absence of other specified parts of digestive tract; T50.8X5A Adverse effect of diagnostic agents, initial encounter; Y92.9 Unspecified place or not applicable; N13.9 Obstructive and reflux uropathy, unspecified
CPT/HCPCS: 36415; 71045-TC; 71250-TC; 75574; 76770-TC; 80048-TC; 80053-TC; 80061-TC; 80076-TC; 81001; 82570-TC; 82962-TC; 83615-TC; 83735-TC; 83880; 84100-TC; 84155-TC; 84300-TC; 84443-TC; 84484-TC; 85025-TC; 85610-TC; 86704; 86706; 86709-TC; 86803; 87070-TC; 87075-TC; 87081-TC; 87102-TC; 88108-TC; 88305-TC; 88312-TC; 89051-TC; 93307-TC; 94799-TC; A4216; C9803; G0378; J1160; J1650; J1815; J1940; J3490; J7030; J7040; J7050; P9045; P9047; Q9967

== ENCOUNTER 2020-12-27 13:32 | Outpatient (CLI) | payer BC ==
[~2020-12-27 13:32] MED LIST changes: +ASPI-869 PO
[2020-12-27 14:41] LABS: ALBUMIN 3.2 g/dL (3.4-5.0); CREATININE 1.2 mg/dL (0.6-1.3); POTASSIUM 4.6 mmol/L (3.5-5.1); TOTAL PROTEIN, SERUM 6.9 g/dL (6.4-8.2)
== END 2020-12-27 23:59 | disposition home or self-care (01) ==
LOC: LAB 13:32
PROVIDERS: ATTEND Internal Medicine Interventional Cardiology
DX: I11.0 Hypertensive heart disease with heart failure (principal); I50.9 Heart failure, unspecified; J90 Pleural effusion, not elsewhere classified; R91.8 Other nonspecific abnormal finding of lung field
CPT/HCPCS: 36415; 71046; 80053-TC